=== PATIENT | male | born 1975 | race American Indian/Alaskan Native ===

== ENCOUNTER 2016-04-27 11:40 | Observation (INO) | payer SELFPAY ==
[2016-04-27 11:47] VITALS: BMI 27.2
--- NOTE | 2016-04-27 12:30 | ED PDOC ---
HPI: Chest Pain Time Seen by Provider: 04/27/16 12:03 Chief Complaint (Nursing): Chest Pain Chief Complaint (Provider): Chest Pain History Per: Patient History/Exam Limitations: no limitations Onset/Duration Of Symptoms: Hrs Current Symptoms Are (Timing): Still Present Severity: Moderate Quality: "Pain" Associated Symptoms: denies: Nausea, Dyspnea, Diaphoresis Modifying Factors: None Exacerbating Factors: None Alleviating Factors: None Additional Complaint(s): Patient is a 40 year old male with a history of CHF and pacemaker, presents to ED for sudden onset chest pain this morning. Patient notes that he is visiting from [place], pain is non exertional and non radiation with no SOB. Denies left swelling, cough or fever. Patient does reports jaw pain but states that the chest pain does not radiates to the jaw. History of similar jaw pain in the past normally in conjunction with seizures, although denies any seizure activity today . Past Medical History Reviewed: Historical Data, Nursing Documentation, Vital Signs Vital Signs: Last Vital Signs Temp 97.5 F L 04/27/16 11:47 Pulse 65 04/27/16 12:07 Resp 20 04/27/16 11:47 BP 131/87 04/27/16 11:47 Pulse Ox 100 04/27/16 14:40 - Medical History PMH: HTN - Surgical History Surgical History: No Surg Hx - Family History Family History: States: No Known Family Hx - Living Arrangements Living Arrangements: With Family - Allergies Allergies/Adverse Reactions: Allergies Allergy/AdvReac Type Severity Reaction Status Date / Time shellfish derived Allergy ANGIOEDEMA Verified 04/27/16 11:59 labetalol Allergy Intermediate SHORTNESS Uncoded 04/27/16 12:00 OF BREATH DOLORES Risk Score for UA/NSTEMI - DOLORES Risk Score Age > 64: NO 3 or more CAD Risk Factors: YES Known CAD (Stenosis greater than 50%): YES Aspirin use in past 7 days: NO Severe Angina: NO EKG ST changes greater than 0.5mm: NO Positive Cardiac Marker: NO DOLORES Score: 2 Risk %: 8% Review of Systems ROS Statement: Except As Marked, All Systems Reviewed And Found Negative Constitutional: Negative for: Fever, Chills Cardiovascular: Positive for: Chest Pain. Negative for: Palpitations, Light Headedness Respiratory: Negative for: Shortness of Breath Gastrointestinal: Negative for: Nausea, Vomiting Skin: Negative for: Rash Neurological: Negative for: Weakness, Numbness Physical Exam - Reviewed Nursing Documentation Reviewed: Yes Vital Signs Reviewed: Yes - Physical Exam Appears: Positive for: Non-toxic, No Acute Distress Skin: Positive for: Normal Color, Warm Eye Exam: Positive for: Normal appearance Neck: Positive for: Normal, Painless ROM Cardiovascular/Chest: Positive for: Regular Rate, Rhythm, Other (Palpable pacemaker ). Negative for: Murmur Respiratory: Positive for: Normal Breath Sounds. Negative for: Respiratory Distress Back: Positive for: Normal Inspection Extremity: Positive for: Normal ROM. Negative for: Pedal Edema Neurologic/Psych: Positive for: Alert, Oriented. Negative for: Motor/Sensory Deficits - Laboratory Results Result Diagrams: 04/27/16 13:00 04/27/16 13:00 - ECG O2 Sat by Pulse Oximetry: 100 (RA) Pulse Ox Interpretation: Normal Medical Decision Making Medical Decision Making: Time: 1210 Initial impression: Chest pain with significant cardiac history Initial plan: -- BnP -- BMP -- Troponin -- CBC -- PT/PTT -- CXR -- potline monitor Time: 1430 Pt admitted to hospitalist service under Dr. Fry. Scribe Attestation: Documented by Kyara Roy acting as a scribe for Gucci Sykes MD, MD Scribe Attestation: All medical record entries made by the Scribe were at my direction and personally dictated by me. I have reviewed the chart and agree that the record accurately reflects my personal performance of the history, physical exam, medical decision making, and the department course for this patient. I have also personally directed, reviewed, and agree with the discharge instructions and disposition. Disposition - Clinical Impression Clinical Impression: Chest pain - Disposition Disposition Time: 14:30 Condition: STABLE
[2016-04-27 13:14] LABS: BASO # 0.1 K/uL (0.0-0.2); BASO % 1.4 % (0.0-2.0); EOS # 0.2 K/uL (0.0-0.7); EOS % 5.9 % (0.0-4.0); HEMATOCRIT 45.8 % (35.0-51.0); LYMPH # 1.4 K/uL (1.0-4.3); LYMPH % 32.9 % (20.0-40.0); MEAN CELL VOLUME 82.4 fl (80.0-94.0); MEAN CORPUSCULAR HEMOGLOBIN 25.9 pg (27.0-31.0); MEAN CORPUSCULAR HGB CONC 31.5 g/dL (33.0-37.0); MEAN PLATELET VOLUME 10.1 fl (7.2-11.7); MONO # 0.4 K/uL (0.0-0.8); MONO % 8.4 % (0.0-10.0); NEUT # 2.2 K/uL (1.8-7.0); NEUT % 51.4 % (50.0-75.0); NRBC % 0.1 % (0.0-0.0); RED CELL DISTRIBUTION WIDTH 14.9 % (11.5-14.5); WHITE BLOOD COUNT 4.2 K/uL (4.8-10.8)
[2016-04-27 13:32] LABS: PARTIAL THROMBOPLASTIN TIME 28.2 SECONDS (23.3-32.5)
[2016-04-27 13:36] LABS: CALCIUM 8.9 mg/dL (8.4-10.2)
--- NOTE | 2016-04-27 13:36 | RAD ---
HISTORY: chest pain, hx of CHF w/ pacemaker COMPARISON: No prior. TECHNIQUE: Chest PA and lateral FINDINGS: LUNGS: The lungs are clear. PLEURA: No significant pleural effusion identified. No pneumothorax apparent. CARDIOVASCULAR: The heart is normal in size. There is a left-sided dual lead transvenous permanent pacing device. OSSEOUS STRUCTURES: The visualized bones are within normal limits for the patient's age. VISUALIZED UPPER ABDOMEN: Normal. OTHER FINDINGS: None. IMPRESSION: No active pulmonary disease.
[2016-04-27 13:37] LABS: POTASSIUM 4.7 MMOL/L (3.6-5.0); TROPONIN I 0.012 ng/mL (0.00-0.120)
--- NOTE | 2016-04-27 14:52 | CP.PCM.HP ---
History of Present Illness - History of Present Illness History of Present Illness: CC: CHEST PAIN HPI: 40 year old male visiting from [place] with extensive cardiac history (as below), PMH Nonischemic Cardiomyopathy (EF 35-40%) and Grade II diastolic dysfunction with ICD (placed 3 years ago), Hx VTach with syncope and VFib, paroxysmal Afib on Eliquis, seizures, presents with a 1 day history of mod /severe acute onset chest pain upon waking up at rest, pressure-like in nature radiating to the jaw. In ER, troponin neg x1, EKG with t wave abnormalities, consistent with prior EKG comparison (sent from patient's interactive developer in [place].) DOLORES=2. No active chest pain, no overt signs over overload or failure. Contacted patient's cardiology group, [facility]. in [place], [place] Dr. Lauro Mejia -- spoke with Dr. Dirk Cardona colleague -- Patient cardiac history: ICD (fired 2x Feb 2016) with Nonischemic cardiomyopathy , paroxysmal afib (chadsvasc 3) on Eliquis, Hx VTach with syncope and VFib, HTN , Class II heart failure, negative cardiac cath in 2012, Nuc Stress showed EF 38 % at that time, seen by EP, as of Feb 2016, LVEF 35-40% with Grade II diastolic dysfunction, EKG showed atrial paced, poor R wave progression, LAFB, in V2V3 mild 1/[address] sloping, copy of EKG sent; also showed same t wave changes in inferior leads and sinusoidal changes in lateral leads. No significant change in EKG since Feb 2016. Vitals stable, no acute distress. ROS: per HPI, all other systems reviewed and negative by me PMSH: Nonischemic Cardiomyopathy (EF 35-40%) with ICD (placed 3 years ago), paroxysmal Afib on Eliquis, Hx VTach with syncope and VFib, seizures FH: denies SH: denies tobacco, ETOH, IVDU MEDS: per medication reconciliation Allergies: shellfish, labetalol Vitals Temp Pulse Resp BP Pulse Ox 97.5 F L 65 20 131/87 100 04/27/16 11:47 04/27/16 12:07 04/27/16 11:47 04/27/16 11:47 04/27/16 14:46 Vital signs as documented. Gen: WDWN, cooperative, alert HEENT: NCAT, PERRL, EOMI, no erythema, exudates, gross hearing intact, no lesions Neck: Soft, supple, no lymphadenopathy, no JVD Heart: +S1S2, RRR, No MRG Lung: CTAB, No WRR Abd: soft, NT, ND, BSx4, no HSM, no masses Ext: warm, well perfused, pedal pulses intact, no edema Neuro: AAOx3, Strength equal bilaterally UE/LE Skin: Warm, Dry, no rash Psych: Normal mood, affect with appropriate range 04/27/16 13:00 04/27/16 13:00 PT 11.7 SECONDS (9.6-11.2) H 04/27/16 13:00 INR 1.13 (0.92-1.08) H 04/27/16 13:00 APTT 28.2 SECONDS (23.3-32.5) 04/27/16 13:00 TROPONIN NEG X1 ACTIVE MEDICATIONS Acetaminophen [Tylenol 325mg tab] 650 mg PO Q6 PRN Ondansetron [Zofran Inj] 4 mg IVP Q6 PRN Nitroglycerin [Nitrostat SL Tab] 0.4 mg SL Q5M PRN Amiodarone [Cordarone] 200 mg PO DAILY Apixaban [Eliquis] 5 mg PO Q12H Anticoagulation Clinical Indication: Atrial Fibrillation Carvedilol [Coreg] 12.5 mg PO Q12H Isosorbide Mononitrate [Imdur] 30 mg PO DAILY Lisinopril [Zestril] 40 mg PO DAILY Spironolactone [Aldactone] 25 mg PO DAILY Furosemide [Lasix] 40 mg PO BID levETIRAcetam [Keppra] 500 mg PO BID ASSESSMENT AND PLAN 40 year old male visiting from [place] with extensive cardiac history ( as below), PMH Nonischemic Cardiomyopathy (EF 35-40%) with ICD, paroxysmal Afib on Eliquis, seizures, presents with a 1 day history of mod/severe acute onset chest pain upon waking up at rest, pressure-like in nature radiating to the jaw. In ER, troponin neg x1, EKG with t wave abnormalities, consistent with prior EKG comparison (sent from patient's interactive developer in [place].) DOLORES= 2. No active chest pain, no overt signs over overload or failure. Patient admitted to tele obs for concern for ACS. Detailed cardiac history as below. EKG consistent with prior in Feb 2016. Cardiac enzymes neg x1. Currently chest pain free. HD stable. Contacted patient's cardiology group, [facility]. in [place], [place] Dr. Lauro Mejia -- spoke with Dr. Dirk Cardona colleague -- Patient cardiac history: ICD (fired 2x Feb 2016) with Nonischemic cardiomyopathy , paroxysmal afib (chadsvasc 3) on Eliquis, Hx VTach with syncope and VFib, HTN , Class II heart failure, negative cardiac cath in 2012 at [facility] in [place], [facility] Stress showed EF 38% at that time which was improved from initial EF of 5%, seen by EP, as of Feb 2016, LVEF 35-40% with Grade II diastolic dysfunction, EKG showed atrial paced, poor r wave progression, LAFB, in V2V3 mild 1/[address] sloping, copy of EKG sent; also showed same t wave changes in inferior leads and sinusoidal changes in lateral leads. No significant change in EKG since Feb 2016. CHEST PAIN, Concern for ACS discussed with patient Cardiology group in [place] as above. Patient has extensive cardiac history. EKG consistent with prior in Feb 2016. 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 CAD ICD 2/2 Nonischemic Cardiomyopathy of initial EF of 5%, now 35-40% as of 02/2016 Carvedilol [Coreg] 12.5 mg PO Q12H Isosorbide Mononitrate [Imdur] 30 mg PO DAILY Lisinopril [Zestril] 40 mg PO DAILY Spironolactone [Aldactone] 25 mg PO DAILY Furosemide [Lasix] 40 mg PO BID Paroxysmal AFib Rate and rhythm controlled rate: 68 BPM Amiodarone [Cordarone] 200 mg PO DAILY Apixaban [Eliquis] 5 mg PO Q12H DVT PPX on Eliquis Present on Admission - Present on Admission Any Indicators Present on Admission: No Past Patient History - Past Social History Smoking Status: Never Smoked - CARDIAC Hx Hypertension: Yes - PSYCHIATRIC Hx Substance Use: No - SURGICAL HISTORY Other/Comment: pacemaker insertion - ANESTHESIA Hx Anesthesia: Yes Hx Anesthesia Reactions: No Meds Allergies/Adverse Reactions: Allergies Allergy/AdvReac Type Severity Reaction Status Date / Time shellfish derived Allergy ANGIOEDEMA Verified 04/27/16 11:59 labetalol Allergy Intermediate SHORTNESS Uncoded 04/27/16 12:00 OF BREATH Results - Vital Signs Recent Vital Signs: Last Vital Signs Temp 97.5 F L 04/27/16 11:47 Pulse 65 04/27/16 12:07 Resp 20 04/27/16 11:47 BP 131/87 04/27/16 11:47 Pulse Ox 100 04/27/16 14:40 - Labs Result Diagrams: 04/27/16 13:00 04/27/16 13:00 Labs: Laboratory Results - last 24 hr 04/27/16 13:00 WBC 4.2 L RBC 5.56 Hgb 14.4 Hct 45.8 MCV 82.4 MCH 25.9 L MCHC 31.5 L RDW 14.9 H Plt Count 167 MPV 10.1 Neut % (Auto) 51.4 Lymph % (Auto) 32.9 [place] % (Auto) 8.4 Eos % (Auto) 5.9 H Baso % (Auto) 1.4 Neut # 2.2 Lymph # 1.4 [place] # 0.4 Eos # 0.2 Baso # 0.1 PT 11.7 H INR 1.13 H APTT 28.2 Sodium 141 Potassium 4.7 Chloride 100 Carbon Dioxide 29 Anion Gap 16 BUN 29 H Creatinine 1.9 H Est GFR ( Amer) 48 Est GFR (Non-Af Amer) 39 Random Glucose 100 Calcium 8.9 Troponin I 0.0120 NT-Pro-B Natriuret Pep 28.4
[2016-04-27] MEDS ORDERED: Sodium Chloride 0.9% 500 ML IV ONE (18:29)
[2016-04-28 05:08] VITALS: TEMP 97.6
[2016-04-28 05:25] LABS: BLOOD UREA NITROGEN 29 mg/dl (9-20); CALCIUM 8.7 mg/dL (8.4-10.2); CARBON DIOXIDE 27 mmol/L (22-30); CHLORIDE 101 mmol/L (98-107); CHOLESTEROL 156 mg/dL (0-199); GFR AFRICAN-AMERICAN 48; GLUCOSE,RANDOM 88 mg/dL (75-110); POTASSIUM 4.1 MMOL/L (3.6-5.0); SODIUM 135 mmol/l (132-148)
[2016-04-28 05:37] LABS: HEMATOCRIT 42.7 % (35.0-51.0); MEAN CELL VOLUME 81.6 fl (80.0-94.0); MEAN CORPUSCULAR HEMOGLOBIN 26.2 pg (27.0-31.0); MEAN CORPUSCULAR HGB CONC 32.1 g/dL (33.0-37.0); RED CELL DISTRIBUTION WIDTH 15.2 % (11.5-14.5); WHITE BLOOD COUNT 5.3 K/uL (4.8-10.8)
[2016-04-28 08:13] VITALS: BP 103/70; PULSE 65; RESP 18; O2SAT 99
--- NOTE | 2016-04-28 08:52 | CP.PCM.DIS ---
Provider - Provider Date of Admission: 04/27/16 14:34 Attending physician: Consuelo Fry DO Time Spent in preparation of Discharge (in minutes): 20 Hospital Course - Lab Results Lab Results: Most Recent Lab Values WBC 5.3 K/uL (4.8-10.8) 04/28/16 04:10 RBC 5.23 Mil/uL (4.40-5.90) 04/28/16 04:10 Hgb 13.7 g/dL (12.0-18.0) 04/28/16 04:10 Hct 42.7 % (35.0-51.0) 04/28/16 04:10 MCV 81.6 fl (80.0-94.0) 04/28/16 04:10 MCH 26.2 pg (27.0-31.0) L 04/28/16 04:10 MCHC 32.1 g/dL (33.0-37.0) L 04/28/16 04:10 RDW 15.2 % (11.5-14.5) H 04/28/16 04:10 Plt Count 161 K/uL (130-400) 04/28/16 04:10 MPV 10.1 fl (7.2-11.7) 04/27/16 13:00 Neut % (Auto) 51.4 % (50.0-75.0) 04/27/16 13:00 Lymph % (Auto) 32.9 % (20.0-40.0) 04/27/16 13:00 [place] % (Auto) 8.4 % (0.0-10.0) 04/27/16 13:00 Eos % (Auto) 5.9 % (0.0-4.0) H 04/27/16 13:00 Baso % (Auto) 1.4 % (0.0-2.0) 04/27/16 13:00 Neut # 2.2 K/uL (1.8-7.0) 04/27/16 13:00 Lymph # 1.4 K/uL (1.0-4.3) 04/27/16 13:00 [place] # 0.4 K/uL (0.0-0.8) 04/27/16 13:00 Eos # 0.2 K/uL (0.0-0.7) 04/27/16 13:00 Baso # 0.1 K/uL (0.0-0.2) 04/27/16 13:00 PT 11.7 SECONDS (9.6-11.2) H 04/27/16 13:00 INR 1.13 (0.92-1.08) H 04/27/16 13:00 APTT 28.2 SECONDS (23.3-32.5) 04/27/16 13:00 Sodium 135 mmol/l (132-148) 04/28/16 04:10 Potassium 4.1 MMOL/L (3.6-5.0) 04/28/16 04:10 Chloride 101 mmol/L (98-107) 04/28/16 04:10 Carbon Dioxide 27 mmol/L (22-30) 04/28/16 04:10 Anion Gap 11 (10-20) 04/28/16 04:10 BUN 29 mg/dl (9-20) H 04/28/16 04:10 Creatinine 1.9 mg/dL (0.8-1.5) H 04/28/16 04:10 Est GFR ( Amer) 48 04/28/16 04:10 Est GFR (Non-Af Amer) 39 04/28/16 04:10 Random Glucose 88 mg/dL (75-110) 04/28/16 04:10 Calcium 8.7 mg/dL (8.4-10.2) 04/28/16 04:10 Troponin I < 0.0120 ng/mL (0.00-0.120) 04/28/16 04:10 NT-Pro-B Natriuret Pep 28.4 pg/ml (0-450) 04/27/16 13:00 Triglycerides 173 mg/DL (0-149) H 04/28/16 04:10 Cholesterol 156 mg/dL (0-199) 04/28/16 04:10 LDL Cholesterol Direct 64 mg/dL (0-129) 04/28/16 04:10 HDL Cholesterol 37 MG/DL (30-70) 04/28/16 04:10 - Hospital Course Hospital Course: 40 year old male visiting from [place] with extensive cardiac history , PMH Nonischemic Cardiomyopathy (EF 35-40%) with ICD, paroxysmal Afib on Eliquis , seizures, presented with 1 day history of mod/severe acute onset chest pain upon waking up at rest, pressure-like in nature radiating to the jaw. In ER, troponin neg x1, EKG with t wave abnormalities, consistent with prior EKG comparison (sent from patient's embroidery machine operator in [place].) DOLORES=2. No active chest pain, no overt signs over overload or failure. Patient admitted to tele obs for concern for ACS. EKG consistent with prior in Feb 2016. Cardiac enzymes neg x3 Currently chest pain free. HD stable. Contacted patient's cardiology group, [facility]. in [place], [place] Dr. Lauro Mejia -- spoke with Dr. Dirk Cardona colleague -- Patient cardiac history: ICD (fired 2x Feb 2016) with Nonischemic cardiomyopathy , paroxysmal afib (chadsvasc 3) on Eliquis, Hx VTach with syncope and VFib, HTN , Class II heart failure, negative cardiac cath in 2012 at [facility] [place], [facility] [place] showed EF 38% at that time which was improved from initial EF of 5%, seen by EP, as of Feb 2016, LVEF 35-40% with Grade II diastolic dysfunction, EKG showed atrial paced, poor r wave progression, LAFB, in V2V3 mild 1/[address] sloping, copy of EKG sent; also showed same t wave changes in inferior leads and sinusoidal changes in lateral leads. No significant change in EKG since Feb 2016. ACS ruled out. Patient will be discharged home with follow up with his embroidery machine operator in 1 week. 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 absent: JVD Additional comments: atrial paced rhythm on monitor - GI/Abdominal Exam GI & Abdominal Exam: Soft. absent: Distended, Tenderness - Rectal Exam Rectal Exam: Deferred - Extremities Exam Extremities exam: normal capillary refill, normal inspection, pedal pulses present - Back Exam Back exam: NORMAL INSPECTION - Neurological Exam Neurological exam: Alert, CN II-XII Intact, Oriented x3, Reflexes Normal - Psychiatric Exam Psychiatric exam: Normal Affect, Normal Mood - Skin Skin Exam: Dry, Intact, Normal Color, Warm Discharge Plan - Discharge Medications Prescriptions: Spironolactone [Aldactone] 25 mg PO DAILY #30 tab Amiodarone [Cordarone] 200 mg PO DAILY #30 tab Carvedilol [Coreg] 12.5 mg PO Q12H #30 tab Apixaban [Eliquis] 5 mg PO Q12H #60 tab Isosorbide Mononitrate [Imdur] 30 mg PO DAILY #30 tab levETIRAcetam [Keppra] 500 mg PO BID #60 tab Furosemide [Lasix] 40 mg PO BID #60 tab Lisinopril [Zestril] 40 mg PO DAILY #30 tab - Follow Up Plan Condition: STABLE Disposition: HOME/ ROUTINE Patient education suggested?: Yes Instructions: Angina (DC) Additional Instructions: Follow up with his embroidery machine operator
[2016-04-28] MEDS ORDERED: Enoxaparin 40 mg Syringe SC SCH (09:00)
--- NOTE | 2016-05-01 17:13 | CARD ---
APPROVED REPORT EKG Measurement Heart [id number] <Conclusion> Atrial-paced rhythm with prolonged AV conduction Nonspecific T wave abnormality Prolonged QT Abnormal ECG
== END 2016-04-28 13:37 | disposition home or self-care (01) ==
LOC: H.ER 11:40 → H.ERHOLD 14:34 → H.TEL 17:40
PROVIDERS: ADMIT Student in an Organized Health Care Education/Training Program; ATTEND Student in an Organized Health Care Education/Training Program
DX: R07.89 Other chest pain (principal); I10 Essential (primary) hypertension; I48.0 Paroxysmal atrial fibrillation; I42.9 Cardiomyopathy, unspecified; I50.42 Chronic combined systolic (congestive) and diastolic (congestive) heart failure
CPT/HCPCS: 36415; 71020; 80048; 80061; 83880; 84484; 85025; 85027; 85610; 85730; 93005; 99283; G0378

== ENCOUNTER 2016-05-04 17:10 | Emergency (ER) | payer SELFPAY ==
[2016-05-04 17:11] VITALS: BMI 27.2
[2016-05-04 17:21] VITALS: BP 113/56; PULSE 66; RESP 16; TEMP 96.8; O2SAT 99
--- NOTE | 2016-05-04 17:31 | ED PDOC ---
HPI: General Adult Time Seen by Provider: 05/04/16 17:20 Chief Complaint (Nursing): Med Refill Chief Complaint (Provider): Med refill History Per: Patient Additional Complaint(s): pt requesting rx for hydralazine. Pt states he is feeling sluggish. Called Pharmacy [phone] Pharmacyst verified RX, Hydralazine 25 mg 1 tab PO TID, last filled on 03/31 Past Medical History Vital Signs: Last Vital Signs Temp 96.8 F L 05/04/16 17:18 Pulse 66 05/04/16 17:18 Resp 16 05/04/16 17:18 BP 113/56 L 05/04/16 17:18 Pulse Ox 99 05/04/16 17:31 - Medical History PMH: Atrial Fibrillation, CHF, HTN, Seizures Denies: Chronic Kidney Disease - Home Medications Home Medications: Ambulatory Orders Medication Instructions Recorded Amiodarone [Cordarone] 200 mg PO DAILY #30 tab 04/28/16 Apixaban [Eliquis] 5 mg PO Q12H #60 tab 04/28/16 Carvedilol [Coreg] 12.5 mg PO Q12H #30 tab 04/28/16 Furosemide [Lasix] 40 mg PO BID #60 tab 04/28/16 Isosorbide Mononitrate [Imdur] 30 mg PO DAILY #30 tab 04/28/16 Lisinopril [Zestril] 40 mg PO DAILY #30 tab 04/28/16 Spironolactone [Aldactone] 25 mg PO DAILY #30 tab 04/28/16 levETIRAcetam [Keppra] 500 mg PO BID #60 tab 04/28/16 hydrALAZINE [Apresoline] 25 mg PO TID 30 Days 05/04/16 - Allergies Allergies/Adverse Reactions: Allergies Allergy/AdvReac Type Severity Reaction Status Date / Time shellfish derived Allergy ANGIOEDEMA Verified 04/27/16 11:59 labetalol Allergy Intermediate SHORTNESS Uncoded 04/27/16 12:00 OF BREATH - ECG O2 Sat by Pulse Oximetry: 99 Disposition - Clinical Impression Clinical Impression: Medicine refill - Disposition Condition: GOOD Prescriptions: hydrALAZINE [Apresoline] 25 mg PO TID 30 Days Instructions: Medicine Refill (ED)
== END 2016-05-04 18:20 | disposition home or self-care (01) ==
LOC: H.ER 17:10
DX: Z76.0 Encounter for issue of repeat prescription (principal)